=== PATIENT | male | born 1945 | race Caucasian/White ===

== ENCOUNTER 2023-04-17 13:02 | Outpatient (OUT) | payer MEDICARE, SELFPAY ==
[2023-04-18 05:08] LABS: PSA, Free 1.04 ng/mL; Prostate Specific Ag 4.5 ng/mL (0.0-4.0)
== END 2023-04-17 13:03 | disposition home or self-care (01) ==
LOC: LAB 13:06
PROVIDERS: Family Provider Family Medicine; PCP Family Medicine; Visit Provider Urology
DX: R97.20 Elevated prostate specific antigen [PSA] (principal); N40.1 Benign prostatic hyperplasia with lower urinary tract symptoms
CPT/HCPCS: 36415; 84153; 84154

== ENCOUNTER 2024-03-14 10:34 | Outpatient (OUT) | payer MEDICARE, SELFPAY ==
[2024-03-15 04:08] LABS: PSA, Free 0.88 ng/mL; Prostate Specific Ag 4.7 ng/mL (0.0-4.0)
== END 2024-03-14 10:35 | disposition home or self-care (01) ==
LOC: LAB 10:37
PROVIDERS: Family Provider Family Medicine; PCP Family Medicine; Visit Provider Urology
DX: R97.20 Elevated prostate specific antigen [PSA] (principal)
CPT/HCPCS: 36415; 84153; 84154